=== PATIENT | male | born 1995 | race Caucasian/White ===

== ENCOUNTER 2020-11-16 07:02 | Day surgery (SDC) | payer OTHER ==
[~2020-11-16 07:02] MED LIST: Clindamycin Phosphate in D5W 600 MG in Premix Bag 50 BAG IV ONE; Lactated Ringers 1,000 ML IV SCH
[2020-11-16] MEDS ORDERED: Midazolam 1 MG/ML 2 ML SDV ONE (07:20)
[2020-11-16] MEDS ORDERED: fentaNYL 250 MCG/5 ML SDV ONE (07:20)
[2020-11-16] MEDS ORDERED: Propofol 200 MG/20 ML SDV ONE (07:20)
[2020-11-16] MEDS ORDERED: Bupivacaine 25%/EPINEPHrine/PF 30 ML ONE (07:39)
--- NOTE | 2020-11-16 07:41 | PCM.PREANE ---
Preanesthetic Assessment - Anesthesia/Transfusion/Family Hx Anesthesia History: Prior Anesthesia Without Reaction Family History of Anesthesia Reaction: No Transfusion History: No Prior Transfusion(s) Intubation History: Unknown - Review of Systems General: No Symptoms Pulmonary: No Symptoms Cardiovascular: No Symptoms Gastrointestinal: No Symptoms Neurological: No Symptoms Other: Reports: None - Physical Assessment Height: 5 ft 7 in Weight: 93.44 kg ASA Class: 2 Mental Status: Alert & Oriented x3 Airway Class: Mallampati = 3 Dentition: Reports: Normal Dentition Thyro-Mental Finger Breadths: 3 Mouth Opening Finger Breadths: 2 (small mouth) ROM/Head Extension: Full Lungs: Clear to Auscultation, Normal Respiratory Effort Cardiovascular: Regular Rate, Regular Rhythm - Allergies Allergies/Adverse Reactions: Allergies Allergy/AdvReac Type Severity Reaction Status Date / Time No Known Allergies Allergy Verified 11/13/20 11:04 - Blood Blood Available: No - Anesthesia Plan Pre-Op Medication Ordered: None - Acknowledgements Anesthesia Type Planned: General Anesthesia Pt an Appropriate Candidate for the Planned Anesthesia: Yes Alternatives and Risks of Anesthesia Discussed w Pt/Guardian: Yes Pt/Guardian Understands and Agrees with Anesthesia Plan: Yes PreAnesthesia Questionnaire HEENT History: Reports: Other (See Below) Other HEENT History: wears glasses Gastrointestinal History: Reports: Hemorrhoids, Other (See Below) Other Gastrointestinal History: occasional heartburn- takes TUMS Psychiatric History: Reports: Anxiety, Depression Endocrine/Metabolic History: Reports: Obesity/BMI 30+ (BMI 32.3) - Past Surgical History Head Surgeries/Procedures: Reports: None HEENT Surgical History: Reports: Myringotomy w Tube(s) - SUBSTANCE USE Tobacco Use Status *Q: Former Tobacco User Tobacco Use Within Last Twelve Months: No Recreational Drug Use History: Yes Recreational Drug Type: Reports: Marijuana/Hashish Recreational Drug Last Use: 2 weeks ago- uses rarely - HOME MEDS Home Medications: Home Meds Celecoxib 200 mg PO ASDIRECTED PRN 11/13/20 [History] Multivitamin 1 tab PO DAILY 11/13/20 [History] Phentermine HCl 37.5 mg PO DAILY 11/13/20 [History] Sertraline HCl 50 mg PO DAILY 11/13/20 [History] busPIRone HCl [Buspirone HCl] 7.5 mg PO BID 11/13/20 [History] - CURRENT (IN HOUSE) MEDS Current Meds: Current Medications Lactated Ringer's (Ringers, Lactated) 1,000 mls @ 125 mls/hr IV ASDIRECTED ROCCO Discontinued Medications Fentanyl (Sublimaze) Confirm Administered Dose 250 mcg .ROUTE .STK-MED ONE Stop: 11/16/20 07:21 Clindamycin Phosphate 600 mg/ (Premix) 50 mls @ 100 mls/hr IV ONETIME ONE Stop: 11/16/20 05:29 Midazolam HCl (Versed 1 Mg/Ml) Confirm Administered Dose 2 mg .ROUTE .STK-MED ONE Stop: 11/16/20 07:21 Propofol (Diprivan 20 Ml) Confirm Administered Dose 200 mg .ROUTE .STK-MED ONE Stop: 11/16/20 07:21
[2020-11-16] MEDS ORDERED: Clindamycin Phosphate in D5W 600 MG in Premix Bag 1 BAG IV ONE ×2 (08:15)
[2020-11-16] MEDS ORDERED: Clindamycin Phosphate in D5W 600 MG in Premix Bag 50 BAG IV ONE ×2 (08:15)
[2020-11-16] MEDS ORDERED: Rocuronium Bromide 50 MG/5 ML Syringe ONE (08:34)
[2020-11-16] MEDS ORDERED: Ondansetron 4 MG/2 ML SDV ONE (08:50)
[2020-11-16] MEDS ORDERED: ePHEDrine 50 MG/ML SDV ONE (09:08)
[2020-11-16] MEDS ORDERED: Glycopyrrolate 0.2 MG/ML SDV ONE (09:10)
[2020-11-16] MEDS ORDERED: HYDROmorphone 2 MG/ML Syringe ONE (09:22)
[2020-11-16] MEDS ORDERED: Naloxone 0.4 MG/ML Syringe IVPUSH PRN (09:56)
[2020-11-16] MEDS ORDERED: EPINEPHrine 1:10,000 1 MG/10 ML Syringe IVPUSH PRN (09:56)
[2020-11-16] MEDS ORDERED: 50% Dextrose in Water 50 ML Syringe IVPUSH PRN (09:56)
[2020-11-16] MEDS ORDERED: Albuterol 0.083% 2.5 MG/3 ML Neb Soln NEB PRN (09:56)
[2020-11-16] MEDS ORDERED: Atropine 0.1 MG/ML 10 ML Syringe IVPUSH PRN ×2 (09:56)
[2020-11-16] MEDS: fentaNYL 100 MCG/2 ML SDV IVPUSH PRN ×2 (10:16→10:22)
--- NOTE | 2020-11-16 10:39 | PCM.POSTAN ---
POST ANESTHESIA ASSESSMENT - MENTAL STATUS Mental Status: Alert, Oriented - VITAL SIGNS Vital Signs: Last Vital Signs Temp 36.5 C 11/16/20 09:53 Pulse 99 11/16/20 10:29 Resp 12 11/16/20 10:29 BP 127/72 11/16/20 10:29 Pulse Ox 96 11/16/20 10:29 - RESPIRATORY Respiratory Status: Respiratory Rate WNL, Airway Patent, O2 Saturation Stable - CARDIOVASCULAR CV Status: Pulse Rate WNL, Blood Pressure Stable - GASTROINTESTINAL GI Status: No Symptoms - PAIN Pain Score: 5 - POST OP HYDRATION Hydration Status: Adequate & Stable - OBSERVATIONS Free Text/Narrative:: No anesthesia problems
[2020-11-16] MEDS ORDERED: Acetaminophen/oxyCODONE 325-5 MG Tab PO ONE ×2 (10:46→12:02)
[2020-11-16] MEDS ORDERED: Acetaminophen/oxyCODONE 325-5 MG Tab ONE (10:56)
--- NOTE | 2020-11-16 11:15 | PCM48HPAN ---
Post Anesthesia Note - EVALUATION WITHIN 48HRS OF ANESTHETIC Vital Signs in Normal Range: Yes Patient Participated in Evaluation: Yes Respiratory Function Stable: Yes Airway Patent: Yes Cardiovascular Function Stable: Yes Hydration Status Stable: Yes Pain Control Satisfactory: Yes Nausea and Vomiting Control Satisfactory: Yes Mental Status Recovered: Yes Vital Signs: Last Vital Signs Temp 36.5 C 11/16/20 09:53 Pulse 99 11/16/20 10:29 Resp 12 11/16/20 10:29 BP 127/72 11/16/20 10:29 Pulse Ox 96 11/16/20 10:29 - COMMENTS/OBSERVATIONS Free Text/Narrative:: No anesthesia problems
[2020-11-16] MEDS ORDERED: Ondansetron 8 MG Tab.DIS PO ONE (11:47)
--- NOTE | 2020-11-16 12:32 | PCM.OPNOTE ---
- General Post-Op/Procedure Note Date of Surgery/Procedure: 11/16/20 Operative Procedure(s): hemorroidectomy Findings: see dict [id number] Pre Op Diagnosis: thrombosed hemorrhoid Post-Op Diagnosis: Same Anesthesia Technique: General ET Tube Primary Surgeon: Yariel Gonzalez Pathology: sent Complications: None Condition: Good Free Text/Narrative:: Intake & Output 11/15/20 11/16/20 11/16/20 22:59 06:59 14:59 Intake Total 1700 Balance 1700
[2020-11-16] MEDS ORDERED: HYDROmorphone 2 MG Tab PO ONE (12:45)
[2020-11-16] MEDS ORDERED: Acetaminophen 1,000 MG in Premix Bag 1 BAG IV ONE (12:48)
--- NOTE | 2020-11-16 14:20 | OR ---
SURGEON: Yariel Gonzalez MD DATE OF PROCEDURE: 11/16/2020 PREOPERATIVE DIAGNOSIS: Hemorrhoids. POSTOPERATIVE DIAGNOSIS: Hemorrhoids. PROCEDURE PERFORMED: Hemorrhoidectomy. PRIMARY SURGEON: Yariel Gonzalez MD COMPLICATIONS: None. FINDINGS: The patient has 360-degree [id number] hemorrhoids. Two of them are particularly big, and one is at 3 o'clock and when the patient is in prone position. Another one is at 10 o'clock. They both are big and looked like there are only external hemorrhoids. Those are to be removed. The other hemorrhoids, we will have to leave them alone. DESCRIPTION OF PROCEDURE: The patient was taken to the operating room and placed in supine position. Upon induction of general endotracheal anesthesia, the patient repositioned into a jackknife prone position. Time-out was being called, patient identified, procedure identified, antibiotic clindamycin given. The patient was then prepped and draped in a sterile fashion. Started with a 3-finger dilatation. Unfortunately, the patient looked like had a small opening and can only finish with 2-finger dilatation. On inspection, the patient had 360-degree round-the- clock external hemorrhoids, not much of internal hemorrhoids, and two of them particularly big and one is at 3 o'clock and the other one is at 10 o'clock. Because those are the ones that are causing him pain, we will remove those. The one at 3 o'clock is a hemorrhoid, the one at 10 o'clock is like a hemorrhoid with necrosis. I believe that one is causing him pain. Attention first turned to the 3 o'clock one and with exposure using 3-0 chromic, stitches at far end of the hemorrhoid were placed for hemostasis and then the hemorrhoid was picked up with Windy clamps, and using a 15 blade, it was excised and sent for pathology. The mucosal opening was repaired by use of 3-0 chromic locking stitch for hemostasis. Attention now turned to the 10 o'clock one, and again using a 3-0 chromic, stitch was placed in the far end and the hemorrhoid was picked up with a Windy and excised and sent for pathology. The mucosal opening was repaired by use of 3-0 chromic locking stitches for hemostasis. At the end took a look, there was no bleeding and hemostasis was pretty good and followed with inserting lots of lidocaine jelly in the rectum for pain management. Local was injected surrounding the anal opening. The patient was then repositioned into supine position and awakened and transferred to recovery room in hemodynamically stable condition. The patient tolerated the procedure well. There were no intraoperative complications. Dr. Gonzalez was present through the whole procedure. ETIENNE / URIEL /[id number]
== END 2020-11-16 13:25 | disposition home or self-care (01) ==
LOC: MW.SDS 07:02
PROVIDERS: ATTEND Surgery
DX: K64.5 Perianal venous thrombosis (principal); E66.9 Obesity, unspecified; Z79.899 Other long term (current) drug therapy; Z87.891 Personal history of nicotine dependence; Z68.32 Body mass index [BMI] 32.0-32.9, adult
CPT/HCPCS: 46320; 88304; A9270; J0131; J1170; J2250; J2405; J2704; J3010; J3490; J7120; 00902

== ENCOUNTER → 2021-02-13 | Day surgery (SDC) | payer OTHER ==
[~2021-02-13] MED LIST changes: -Clindamycin Phosphate in D5W 600 MG in Premix Bag 50 BAG IV ONE; +Glycopyrrolate 0.2 MG/ML SDV ONE; +Lidocaine 2% 5 ML SDV ONE; +Midazolam 1 MG/ML 2 ML SDV ONE; +Propofol 200 MG/20 ML SDV ONE
--- NOTE | 2021-02-13 10:28 | PCM.PREANE ---
Preanesthetic Assessment - Anesthesia/Transfusion/Family Hx Anesthesia History: Prior Anesthesia Without Reaction Family History of Anesthesia Reaction: No Transfusion History: No Prior Transfusion(s) Intubation History: Unknown - Review of Systems General: No Symptoms Pulmonary: No Symptoms Cardiovascular: No Symptoms Gastrointestinal: No Symptoms Neurological: No Symptoms Other: Reports: None - Physical Assessment NPO Status Date: 02/13/21 NPO Status Time: 00:01 Height: 5 ft 7 in Weight: 225 lb ASA Class: 2 Mental Status: Alert & Oriented x3 Airway Class: Mallampati = 2 Dentition: Reports: Normal Dentition ROM/Head Extension: Full Lungs: Clear to Auscultation, Normal Respiratory Effort Cardiovascular: Regular Rate, Regular Rhythm - Allergies Allergies/Adverse Reactions: Allergies Allergy/AdvReac Type Severity Reaction Status Date / Time No Known Allergies Allergy Verified 02/07/21 08:49 - Anesthesia Plan Pre-Op Medication Ordered: None - Acknowledgements Anesthesia Type Planned: General Anesthesia Pt an Appropriate Candidate for the Planned Anesthesia: Yes Alternatives and Risks of Anesthesia Discussed w Pt/Guardian: Yes Pt/Guardian Understands and Agrees with Anesthesia Plan: Yes Additional Comments: npo tob quit 2009 vaping quit 2017 etoh rare anxiety depression par no questions PreAnesthesia Questionnaire HEENT History: Reports: Impaired Vision Other HEENT History: wears glasses Cardiovascular History: Reports: None Respiratory History: Reports: None Gastrointestinal History: Reports: Hemorrhoids Other Gastrointestinal History: occasional heartburn- takes TUMS Genitourinary History: Reports: None Neurological History: Reports: None Psychiatric History: Reports: Anxiety Endocrine/Metabolic History: Reports: Obesity/BMI 30+ Hematologic History: Reports: None Immunologic History: Reports: None Oncologic (Cancer) History: Reports: None Dermatologic History: Reports: None - Infectious Disease History Infectious Disease History: Reports: Chicken Pox - Past Surgical History Head Surgeries/Procedures: Reports: None HEENT Surgical History: Reports: None Respiratory Surgical History: Reports: None GI Surgical History: Reports: Other (See Below) Other GI Surgeries/Procedures: had hemorrhiodectomy Oct 2020 Female Surgical History: Male Surgical History: Reports: None Endocrine Surgical History: Reports: None Musculoskeletal Surgical History: Reports: Other (See Below) Other Musculoskeletal Surgeries/Procedures:: states had foot surgery at age 1 - SUBSTANCE USE Tobacco Use Status *Q: Former Tobacco User - HOME MEDS Home Medications: Home Meds Multivitamin 1 tab PO DAILY 11/13/20 [History] Melatonin 1 tab PO ASDIRECTED 02/07/21 [History] Zolpidem [Ambien] 1 tab PO BEDTIME 02/07/21 [History] - CURRENT (IN HOUSE) MEDS Current Meds: Current Medications Lactated Ringer's (Ringers, Lactated) 1,000 mls @ 125 mls/hr IV ASDIRECTED ROCCO Discontinued Medications Glycopyrrolate (Glycopyrrolate 0.2 Mg/Ml Sdv) Confirm Administered Dose 0.2 mg .ROUTE .STK-MED ONE Stop: 02/13/21 07:27 Lidocaine (Lidocaine 2% 5 Ml Sdv) Confirm Administered Dose 5 ml .ROUTE .STK-MED ONE Stop: 02/13/21 07:27 Midazolam HCl (Midazolam 1 Mg/Ml 2 Ml Sdv) Confirm Administered Dose 2 mg .ROUTE .STK-MED ONE Stop: 02/13/21 07:23 Propofol (Propofol 200 Mg/20 Ml Sdv) Confirm Administered Dose 600 mg .ROUTE .STK-MED ONE Stop: 02/13/21 07:22 Propofol (Propofol 200 Mg/20 Ml Sdv) Confirm Administered Dose 200 mg .ROUTE .STK-MED ONE Stop: 02/13/21 07:23
--- NOTE | 2021-02-13 11:10 | PCM.OPNOTE ---
- General Post-Op/Procedure Note Date of Surgery/Procedure: 02/13/21 Operative Procedure(s): egd w bx. colonoscopy Findings: see [id number] Pre Op Diagnosis: BRBPR Post-Op Diagnosis: gerd and mild ext hemorrhoid Anesthesia Technique: Moderate Sedation Primary Surgeon: Yariel Gonzalez Pathology: egd bx Complications: None Condition: Good
--- NOTE | 2021-02-13 12:41 | PCM.POSTAN ---
POST ANESTHESIA ASSESSMENT - MENTAL STATUS Mental Status: Alert (no anesthetic problems), Oriented - VITAL SIGNS Vital Signs: Last Vital Signs Temp 98.2 F 02/13/21 10:15 Pulse 83 02/13/21 11:14 Resp 12 02/13/21 11:14 BP 101/56 L 02/13/21 11:14 Pulse Ox 99 02/13/21 11:14 - RESPIRATORY Respiratory Status: Respiratory Rate WNL, Airway Patent, O2 Saturation Stable - CARDIOVASCULAR CV Status: Pulse Rate WNL, Blood Pressure Stable - GASTROINTESTINAL GI Status: No Symptoms - POST OP HYDRATION Hydration Status: Adequate & Stable
--- NOTE | 2021-02-13 12:41 | PCM48HPAN ---
Post Anesthesia Note - EVALUATION WITHIN 48HRS OF ANESTHETIC Vital Signs in Normal Range: Yes Patient Participated in Evaluation: Yes Respiratory Function Stable: Yes Airway Patent: Yes Cardiovascular Function Stable: Yes Hydration Status Stable: Yes Pain Control Satisfactory: Yes Nausea and Vomiting Control Satisfactory: Yes Mental Status Recovered: Yes Vital Signs: Last Vital Signs Temp 98.2 F 02/13/21 10:15 Pulse 83 02/13/21 11:14 Resp 12 02/13/21 11:14 BP 101/56 L 02/13/21 11:14 Pulse Ox 99 02/13/21 11:14
--- NOTE | 2021-02-13 16:35 | OR ---
SURGEON: Yariel Gonzalez MD DATE OF PROCEDURE: 02/13/2021 PREOPERATIVE DIAGNOSIS: Bright red blood per rectum. POSTOPERATIVE DIAGNOSES: 1. EGD diagnosis is acid reflux. 2. Colonoscopy diagnosis is external hemorrhoids. PROCEDURES PERFORMED: 1. Esophagogastroduodenoscopy with biopsy. 2. Colonoscopy. DESCRIPTION OF PROCEDURE: EGD: The patient was taken to the endoscopy room, and with the CHEMISTRY SPECIALIST, Diprivan was administered. A well-lubricated EGD scope was gently inserted through the oropharynx, down the esophagus, passing through the gastroesophageal junction, into the stomach. The mucosa was examined upon the passage. Any etiology will be noted. Once in the stomach, we continued to advance to the distal antrum, passed through the pylorus into the second portion of the duodenum. Again, the mucosa was examined for any abnormality and etiology. The scope was then retrieved back to the stomach and then retroflexed to look at the fundus of the stomach. If a biopsy was indicated, we will biopsy the antrum, body, and gastroesophageal junction. The air will be sucked out while the scope is retrieved to reduce the patient's discomfort. The patient tolerated the procedure well. There were no intraoperative complications. Dr. Gonzalez was present through the whole procedure. Prior to surgery, a time-out had been called, the patient identified, procedure identified and antibiotic administered. Colonoscopy: The patient was taken to the endoscopy room. A time out was called, patient identified, and procedure identified. Diprivan was then administrated. Patient went from awake to sleep, hearing doctor talking or door closing is normal. Perineum inspection and digital examination were then performed. A well-lubricated colonoscope was gently inserted through the rectum, advanced past the rectosigmoid junction, the descending colon, splenic flexure, transverse colon, hepatic flexure, ascending colon, arrived to the cecum. Cecum was identified as dictated in the finding. Then the scope was carefully withdrawn while attention was paid to the mucosal surface for any abnormality. Air will be sucked out during the scope withdrawal. At the rectum, retroflexed to examine any rectal diseases, fistula or hemorrhoids. Patient tolerated procedure well. There were no intraoperative complications, and Dr. Gonzalez was present throughout the whole procedure. FINDINGS: EGD findings: 1. The patient is easily sedated with CHEMISTRY SPECIALIST and Diprivan, the patient is soundly snoring. 2. Oropharynx and proximal esophagus are free of disease. Distal esophagus at GE junction shows very little salmon-colored change. It is very mild to none acid reflux. Stomach rugae are normal in appearance. Antrum looks fine. Duodenum looks fine. Retroflexed look at the fundus of stomach, there is no hiatal hernia. Biopsy done at antrum, body, GE junction at 40 and sucked out the gas while scope pulling out. During the whole study, there is no blood, ulcer, bile, or food particle observed. Colonoscopy findings: 1. The patient is easily sedated with CHEMISTRY SPECIALIST and Diprivan, the patient is soundly snoring. 2. Bowel prep could have been better. It is not very bad, but there are quite a lot of small specks of semi-formed stool coating the mucosa and in some places, there is complete opaque liquid stool coating the mucosa, although it is very little area and also is easily irrigated away, but the bowel prep is less than average bowel prep. Colon rather straightforward. Cecum indicated by ileocecal fold, one-to-one indentation, and appendiceal orifice, and ScopeGuide is pointing south. Mucosa examined upon scope pulling out with constant irrigation. The patient does not have diverticulosis, polyp, mass, growth, inflammation, stricture, ulceration, AV malformation, bleeding, ulcer, none of those. Stool is completely yellow. There is no black stool observed. The patient has one tiny external hemorrhoid and the previous hemorrhoidectomy has healed well, and there are no internal hemorrhoids. The patient would benefit from repeat colonoscopy on an as-needed basis as the patient is only 25 years old or if clinically indicated otherwise. ETIENNE / URIEL /[id number]
== END | disposition home or self-care (01) ==
LOC: MW.SDS 09:16
PROVIDERS: ATTEND Surgery
DX: K62.5 Hemorrhage of anus and rectum (principal); K64.4 Residual hemorrhoidal skin tags; K21.9 Gastro-esophageal reflux disease without esophagitis; E66.9 Obesity, unspecified; Z98.890 Other specified postprocedural states; Z79.899 Other long term (current) drug therapy; Z87.891 Personal history of nicotine dependence; Z68.35 Body mass index [BMI] 35.0-35.9, adult
CPT/HCPCS: 43239; 45378; J2250; J2704; J3490; J7120; 00813; 88305; 88312